=== PATIENT | female | born 2005 | race American Indian/Alaskan Native ===

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

== ENCOUNTER → 2025-05-16 | Outpatient (CLI) | payer OTHER | LOC: LAB SHORT 17:29 → LAB 17:29 | DX: N92.6 Irregular menstruation, unspecified (principal); Z31.9 Encounter for procreative management, unspecified | CPT/HCPCS: 84702 ==

== ENCOUNTER → 2025-09-09 | Outpatient (CLI) | payer BC, OTHER ==
[2025-09-09 19:28] LABS: BASOPHILS ABSOLUTE AUTO 0.04 K/mm3 (0.00-0.23); BASOPHILS PERCENT AUTO 0 % (0-2); EOSINOPHILS ABSOLUTE AUTO 0.28 K/mm3 (0.00-0.68); EOSINOPHILS PERCENT AUTO 3 % (0-6); Hematocrit 41.5 % (33.0-51.0); Hemoglobin 13.8 g/dL (11.5-16.0); IMMATURE GRAN ABSOLUTE AUTO 0.04 K/mm3 (0.00-0.10); IMMATURE GRAN PERCENT AUTO 0 % (0-1); LYMPHOCYTES ABSOLUTE AUTO 2.46 K/mm3 (0.84-5.20); LYMPHOCYTES PERCENT AUTO 23 % (21-46); MONOCYTES ABSOLUTE AUTO 0.71 K/mm3 (0.16-1.47); MONOCYTES PERCENT AUTO 7 % (4-13); Mean Corpuscular HGB Conc 33.3 g/dL (31.5-36.5); Mean Corpuscular Volume 90 fL (80-100); NEUTROPHILS ABSOLUTE AUTO 7.00 K/mm3 (1.96-9.15); NEUTROPHILS PERCENT AUTO 66 % (41-73); NRBC ABSOLUTE 0.00 K/mm3 (0.00-0.02); NRBC Auto 0.0 /100 WBC (0.0-0.2); Platelet Count 339 K/mm3 (150-400); RDW Coefficient Variation 12.9 % (11.7-14.2); RDW Standard Deviation 41.9 fL (35.1-46.3)
[2025-09-09 20:21] LABS: Alanine Aminotransfer (ALT/SGP 50.0 U/L (12-78); Albumin, Blood 4.0 g/dL (3.4-5.0); Albumin/Globulin Ratio 1.1 (0.8-1.8); Anion Gap 8.0 mmol/L (3-11); Aspartate Aminotrans (AST/SGOT 37.0 U/L (12-37); Bilirubin, Total 0.3 mg/dL (0.1-1.0); Blood Urea Nitrogen 13.0 mg/dL (8-24); CO2, Blood 28.0 mmol/L (21-32); Calcium, Blood 9.5 mg/dL (8.5-10.1); Chloride, Blood 104.0 mmol/L (98-108); Creatinine, Blood 0.76 mg/dL (0.40-1.00); Globulin, Blood 3.7 g/dL (2.2-4.0); Glucose, Blood 86.0 mg/dL (70-99); Potassium, Blood 3.8 mmol/L (3.5-5.5); Sodium, Blood 136.0 mmol/L (136-145); Thyroid Stimulating Hormone 2.03 uIU/mL (0.360-4.800); Total Protein, Blood 7.7 g/dL (6.4-8.2)
== END ==
LOC: LAB SHORT 18:49 → LAB 18:49
PROVIDERS: Student in an Organized Health Care Education/Training Program
DX: E55.9 Vitamin D deficiency, unspecified (principal); R53.82 Chronic fatigue, unspecified
CPT/HCPCS: 80053; 82306; 84443; 85025

== ENCOUNTER → 2025-09-19 | Outpatient (CLI) | payer BC, OTHER | LOC: LAB 19:42 → LAB SHORT 19:42 | DX: R35.0 Frequency of micturition (principal) | CPT/HCPCS: 87086 ==